=== PATIENT | male | born 1970 | race African-American/Black ===

== ENCOUNTER 2018-04-25 13:08 | Emergency (ER) | payer BC ==
[~2018-04-25] VITALS: Ht 185.4 cm; Wt 101.2 kg
[2018-04-25 13:13] VITALS: Ht 185.4 cm; Wt 101.2 kg
[2018-04-25 14:11] LABS: BASOPHIL % 0.3 % (0-2); PLATELET COUNT 166 x10^3mcL (130-400); RED CELL DISTRIBUTION WIDTH 13.2 % (11.5-14.5)
[2018-04-25 14:37] LABS: CALCIUM 8.5 mg/dL (8.5-10.1); CARBON DIOXIDE 26.9 mmol/L (21-32); CREATININE SERUM 1.4 mg/dL (0.7-1.3)
[2018-04-25 14:42] LABS: ALBUMIN 3.7 g/dL (3.4-5.0); BILIRUBIN TOTAL 0.5 mg/dL (0.20-1.00); PHOSPHOROUS 3.2 mg/dL (2.5-4.9); TOTAL PROTEIN, SERUM 7.9 g/dL (6.4-8.2)
[2018-04-25 15:01] VITALS: BP 136/90
== END 2018-04-25 15:01 | disposition home or self-care (01) ==
LOC: ED 13:08
PROVIDERS: Emergency Medicine
DX: R07.89 Other chest pain (principal); Z87.19 Personal history of other diseases of the digestive system
CPT/HCPCS: 36415; Q0092

== ENCOUNTER 2019-01-13 22:04 | Emergency (ER) | payer BC ==
[~2019-01-13] VITALS: Ht 185.4 cm; Wt 99.8 kg
[2019-01-13 22:45] VITALS: Ht 185.4 cm; Wt 99.8 kg
[2019-01-14 00:26] VITALS: BP 120/74
== END 2019-01-14 00:26 | disposition home or self-care (01) ==
LOC: ED 22:04
DX: S63.616A Unspecified sprain of right little finger, initial encounter (principal); K21.9 Gastro-esophageal reflux disease without esophagitis; X50.1XXA Overexertion from prolonged static or awkward postures, initial encounter; Y93.89 Activity, other specified; Y92.89 Other specified places as the place of occurrence of the external cause; Y99.8 Other external cause status